=== PATIENT | male | born 1965 | race African-American/Black ===

== ENCOUNTER 2021-10-03 08:38 | Emergency (ER) | payer OTHER, SELFPAY ==
[2021-10-03 08:48] VITALS: BP 142/84; PULSE 72; RESP 16; TEMP 36.2; O2SAT 99
--- NOTE | 2021-10-03 08:57 | ED.EYEPROB ---
HPI - Eye Problem General Chief complaint: Eye Problems Stated complaint: left eye redness Time Seen by Provider: 10/03/21 08:40 Source: patient Mode of arrival: ambulatory Limitations: no limitations History of Present Illness HPI Narrative: 55 year old male presents to [facility] with complaints of let eye redness, drainage and matting since yesterday, Patient does wear glasses. Patient denies injury to his eye. Patient reports that his eye was matted shut this AM. Patient reports that he has had mild cold symptoms over the past week but denies fever. MD chief complaint: eye redness and other (drainage, matting) Onset (ago): day(s) (1) Location: left eye Mechanism: none Associated symptoms: none Treatments Prior to Arrival: none Related Data Home Medications Medication Instructions Recorded Confirmed bisoprolol fumarate 5 mg tablet 5 mg PO DAILY 10/03/21 10/03/21 evolocumab 140 mg/mL subcutaneous 140 mg subcut [id number] 10/03/21 10/03/21 pen injector (Fuad Youssef) meloxicam 15 mg tablet 15 mg PO DAILY 10/03/21 10/03/21 tamsulosin 0.4 mg capsule 0.4 mg PO DAILY 10/03/21 10/03/21 Allergies Allergy/AdvReac Type Severity Reaction Status Date / Time aspirin AdvReac Intermediate Vomiting Verified 10/03/21 09:06 Review of Systems Constitutional: Constitutional: Denies chills, Denies fatigue, Denies fever(s) and Denies weakness Eyes: Comments: left eye redness, irritation, drainage and matting ENT: Denies vertigo, Denies dizziness and Denies nasal congestion Cardiovascular: Cardiovascular: Denies chest pain, Denies rapid heart rate and Denies radiating jaw, neck or arm pain Gastrointestinal: Gastrointestinal: Denies abdominal pain, Denies nausea and Denies vomiting Integumentary/Breasts: Skin/Breast: Denies rash Exam Const: General: healthy appearing Nutritional Appearance: well nourished Orientation/consciousness: patient oriented x3 Limitations: no limitations HENMT: Head: normal to inspection Ears: external ears normal Face and sinus: normal facial exam Mouth: Yes Normal oral and palatal mucosa present Throat: uvula midline Eyes: Conjunctivae: conjunctival abnormality left (redness noted to left eye with scant amount of purlulent drainage from left eye noted. ) conjunctival injection Pupils: Equal, round and reactive pupils present Neck: Neck: normal visual inspection Resp: Effort & Inspection: normal respiratory effort Cardio: Rate: regular rate Rhythm: regular rhythm Heart sounds: no murmurs Skin: General skin exam: normal color Rashes: no rashes Wounds: no wounds Neuro: General: patient oriented x3 and moves all extremities Speech: normal speech Gait exam (Neuro): Normal gait present Psych: Mental Status: mental status grossly normal Affect: normal affect Attitude: cooperative Course Course Level of Care: Express Care Visit Vital Signs Vital signs: Vital Signs Temperature 36.2 C L 10/03/21 08:48 Pulse Rate 72 10/03/21 08:48 Respiratory Rate 16 10/03/21 08:48 Blood Pressure 142/84 H 10/03/21 08:48 Pulse Oximetry 99 10/03/21 08:48 Oxygen Delivery Room Air 10/03/21 08:48 Temperature 36.2 C L 10/03/21 08:48 Pulse Rate 72 10/03/21 08:48 Respiratory Rate 16 10/03/21 08:48 Blood Pressure 142/84 H 10/03/21 08:48 Pulse Oximetry 99 10/03/21 08:48 Oxygen Delivery Room Air 10/03/21 08:48 MDM - Eye Problem MDM Narrative Medical decision making narrative: Patient instructed to use eye drops as prescribed. Instructed patient to wash hands after touching eye. Patient agrees to follow up with eye dr if symptoms do not improve. Also informed patient to proceed to ER if symptoms worsen Differential Diagnosis Differential diagnosis: Likely subconjunctival hemorrhage and other (viral illness) Critical Care Time Critical Care Time Critical Care Time: No Discharge Plan Discharge Clinical Impression: Bacterial conjunctivitis Patient Di
== END 2021-10-03 09:31 | disposition home or self-care (01) ==
PROVIDERS: Emergency Provider Nurse Practitioner Family
DX: H10.9 Unspecified conjunctivitis (principal)
CPT/HCPCS: 99203; G0463

== ENCOUNTER → 2023-03-09 09:23 | Outpatient (CLI) | payer OTHER, SELFPAY ==
--- NOTE | ~2023-03-09 | XR_ITS ---
XR_[id number] DATE: 03/09/2023 10:16 INDICATION: Neck pain TECHNIQUE: AP, lateral, open-mouth, odontoid and swimmer views COMPARISON: None FINDINGS: Cervical curvature is intact. C1 and C2 are normally aligned and the odontoid process is in tact. There is moderately severe degenerative disc disease and anterior and posterior spurring at C6-7. The remaining cervical spaces are well preserved. No fracture or dislocation or locked facet or prevertebral soft tissue swelling. IMPRESSION: Moderately severe degenerative disc disease at C6-7 Reviewed, dictated and finalized at [facility]. Reviewed, dictated and finalized at [facility]. [facility]
== END ==
PROVIDERS: PCP Chiropractor; Visit Provider Family Medicine
DX: M50.323 Other cervical disc degeneration at C6-C7 level (principal)
CPT/HCPCS: 72040

== ENCOUNTER 2023-03-31 11:35 | Outpatient (CLI) | payer OTHER, SELFPAY ==
[2023-03-31 12:38] LABS: Influenza A QL RT-PCR Positive (Negative); Influenza B QL RT-PCR Negative (Negative); RSV RNA, RT-PCR Negative (Negative); SARS-CoV-2 RNA PCR Negative (Negative)
== END 2023-03-31 11:36 | disposition home or self-care (01) ==
LOC: ANHLAB 11:36
PROVIDERS: PCP Chiropractor; Visit Provider Physician Assistant
DX: R50.9 Fever, unspecified (principal); Z20.822 Contact with and (suspected) exposure to COVID-19
CPT/HCPCS: 87637

== ENCOUNTER 2023-03-31 11:56 | Emergency (ER) | payer OTHER, SELFPAY ==
--- NOTE | ~2023-03-31 | XR_ITS ---
Clinical Indication: Fever PA and lateral views of the chest: Comparison: None Findings: The lungs are clear, without evidence of focal consolidation or pleural effusion. Cardiome diastinal silhouette is within normal limits. Bones and soft tissues are unremarkable. Impression: Normal chest. Reviewed, dictated and finalized at [facility]. CURER Impression: Normal chest.
[2023-03-31 12:25] VITALS: BP 160/92; PULSE 89; RESP 16; TEMP 36.8; O2SAT 99
[2023-03-31 13:00] LABS: Influenza A QL RT-PCR Positive (Negative); Influenza B QL RT-PCR Negative (Negative); RSV RNA, RT-PCR Negative (Negative); SARS-CoV-2 RNA PCR Negative (Negative)
--- NOTE | 2023-03-31 13:59 | ED.URI ---
HPI - URI/Sore Throat General Chief Complaint: Upper Respiratory Infection Stated Complaint: cough, congestion, fever Time Seen by Provider: 03/31/23 13:58 Source: patient Mode of arrival: ambulatory Limitations: no limitations History of Present Illness HPI Narrative: Watson is a 57-year-old male patient presenting to the ER today with complaints of cough, congestion, and fever. Reports that his symptoms started Monday night. Does report some chest discomfort with coughing. Cough is nonproductive. MD elicited complaint: fever, cough, nasal congestion and other Related Data Allergies Allergy/AdvReac Type Severity Reaction Status Date / Time aspirin AdvReac Intermediate Vomiting Verified 02/28/23 13:49 Review of Systems Review of Systems: Pertinent positives per HPI. Patient denies any rash, headache, visual changes, dizziness, shortness of breath, chest pain, palpitations, nausea, vomiting, diarrhea, constipation, abdominal pain, or any urinary issues. PMFSH Past Medical History Medical History (Updated 03/31/23 @ 14:04 by James Johnson APRN) BPH (benign prostatic hyperplasia) Chronic neck pain Elevated PSA Erectile dysfunction HLD (hyperlipidemia) HTN (hypertension) Osteoarthritis Surgical History Surgical History History of umbilical hernia repair Family History Family History Mother Hypertension Social History Social History Smoking status: Never smoker Alcohol intake: never Substance use: never Living arrangements: with family Occupation/Education: occupation Gender identity (if verbalized by the patient): Male Sexual Orientation (if Verbalized by the Patient): Straight or Heterosexual Spiritual care concerns: No Comments At the time of my signature, I reviewed and agree with the nursing past medical, surgical, social, and family history. There is no relevant family history pertinent to the patient complaint. Exam Narrative: General: Well-developed, well nourished, in no apparent distress Head: Normocephalic, atraumatic Eyes: Pupils equally round and reactive to light bilaterally, EOM intact, sclera and conjunctive clear, no discharge, lids normal Ears: TMs intact and clear, ear canals ceruminous, no drainage, grossly hearing normal. Nose: Nares patent, clear nasal discharge, no inflammation, no sinus tenderness. Mouth: Oral pharynx without lesions or masses, good dentition, MMM. Neck: Supple, trachea midline, no enlargement of anterior or posterior cervical nodes, no thyroid masses or goiter palpable. Cardio: Regular rate and rhythm, s1 and s2 normal, no murmur appreciated. Resp: Clear to auscultation bilaterally, no rhonchi, rales, wheezing or rubs Course Course Emergency Course: Portions of this record may have been created with voice recognition software. Vital Signs Vital signs: Vital Signs Temperature 36.8 C 03/31/23 12:25 Pulse Rate 89 03/31/23 12:25 Respiratory Rate 16 03/31/23 12:25 Blood Pressure 160/92 H 03/31/23 12:25 Pulse Oximetry 99 03/31/23 12:25 Temperature 36.8 C 03/31/23 12:25 Pulse Rate 89 03/31/23 12:25 Respiratory Rate 16 03/31/23 12:25 Blood Pressure 160/92 H 03/31/23 12:25 Pulse Oximetry 99 03/31/23 12:25 Vital signs reviewed MDM - URI/Sore Throat MDM Narrative Medical decision making narrative: At the time of visit patient is resting comfortably on the exam table. Patient appears to be nontoxic. Labs: Influenza a testing was positive. COVID and RSV testing was negative. Diagnostics: Chest x-ray is negative for any sign pneumonia. Plan: I suspect patient has influenza A. Prescription for Tamiflu was sent to the pharmacy. Work note was given. Supportive measures were discussed with the patient and they
== END 2023-03-31 14:20 | disposition home or self-care (01) ==
LOC: ANHED 14:08
PROVIDERS: Emergency Medicine; Emergency Provider Nurse Practitioner Family; PCP Family Medicine
DX: J10.1 Influenza due to other identified influenza virus with other respiratory manifestations (principal); Z20.822 Contact with and (suspected) exposure to COVID-19; I10 Essential (primary) hypertension; E78.5 Hyperlipidemia, unspecified; N40.0 Benign prostatic hyperplasia without lower urinary tract symptoms; M19.90 Unspecified osteoarthritis, unspecified site
CPT/HCPCS: 71046; 87637; 99283

== ENCOUNTER 2024-02-28 10:01 | Emergency (ER) | payer OTHER, SELFPAY ==
[2024-02-28 10:19] VITALS: BP 133/83; PULSE 76; RESP 15; TEMP 36.7; O2SAT 99
--- NOTE | 2024-02-28 10:20 | ED_ITS ---
HPI - URI/Sore Throat General Chief Complaint: Upper Respiratory Infection Stated Complaint: Bodyaches/Chills/Fatigue Time Seen by Provider: 02/28/24 10:20 Source: patient, RN notes reviewed and old records reviewed Mode of arrival: ambulatory Limitations: no limitations History of Present Illness HPI Narrative: Patient presents with complaints of URI symptoms that began at about 7:00 p.m. last night. He reports runny nose, cough, body aches, headache, subjective fever. He has not been taking anything for his symptoms. He is requesting a work note Related Data Home Medications ?Medication ?Instructions ?Recorded ?Confirmed ?Last Taken ?Type evolocumab 140 mg/mL subcutaneous mg subcut 02/28/24 Unknown History syringe (Repatha Syringe) Allergies Allergy/AdvReac Type Severity Reaction Status Date / Time aspirin AdvReac Intermediate Vomiting Verified 02/28/24 10:20 Review of Systems Review of Systems: All systems reviewed & are unremarkable except as noted in HPI and below Constitutional: Constitutional: Reports as per HPI, Reports no additional constitutional complaints, Reports body ache(s), Reports chills, Reports fever(s) and Reports headache(s) ENT: Reports system reviewed and no additional complaints, except as documented, Reports headache(s), Reports nasal congestion and Reports nasal discharge Cardiovascular: Cardiovascular: Reports no additional cardiovascular complaints Respiratory: Respiratory: Reports no additional respiratory complaints and Reports cough Gastrointestinal: Gastrointestinal: Reports no additional gastrointestinal complaints [facility] Past Medical History Medical History BPH (benign prostatic hyperplasia) Chronic neck pain Elevated PSA Erectile dysfunction HLD (hyperlipidemia) HTN (hypertension) Osteoarthritis Surgical History Surgical History History of umbilical hernia repair Family History Family History Mother Hypertension Social History Social History Smoking status: Never smoker Alcohol intake: never Substance use: never Living arrangements: with family Occupation/Education: occupation Gender identity (if verbalized by the patient): Male Sexual Orientation (if Verbalized by the Patient): Straight or Heterosexual Spiritual care concerns: No Comments At the time of my signature, I reviewed and agree with the nursing past medical, surgical, social, and family history. There is no relevant family history pertinent to the patient complaint. Exam Const: General: cooperative, no acute distress, alert and awake Orientation/consciousness: oriented to person, oriented to place and oriented to time HENMT: Head: normal to inspection Ears: TM's normal bilaterally Resp: Effort & Inspection: normal respiratory effort and able to speak in complete sentences Auscultation: clear to auscultation bilaterally, no crackles, no rales, no rhonchi and no wheezes Cardio: Palpation: normal PMI Rate: regular rate Rhythm: regular rhythm Heart sounds: S1 normal heart sound present and S2 normal heart sound present Neuro: General: oriented to person, oriented to place and oriented to time Cranial nerves: Yes CN's II-XII intact bilaterally Psych: Appearance: grossly normal Thought process: Normal thought process present Insight: Good insight present (Psych) Judgement: Good judgement present (Psych) Course Course Level of Care: Express Care Visit Vital Signs Vital signs: Reviewed MDM - URI/Sore Throat MDM Narrative Medical decision making narrative: Negative flu, negative COVID, reassuring physical exam. Patient advised to treat symptoms. Discharge instructions reviewed with patient, as well as provided in writing per nursing staff. The instructions also include specific and strict return/GO TO THE ER as well as f/u information. All questions have been answered, and the patient deny any further questions with discharge and discharge plan. Some parts of this dictation were generated by voice recognition software and may contain typographical and/or grammatical inaccuracies. Differential Diagnosis Differential diagnosis: Likely upper respiratory infection, otitis media, viral infection, influenza and pharyngitis Medical Records Attestation: I reviewed the patient's medical records. Lab Data Attestation: I reviewed the patient's lab results. Discharge Plan Discharge Clinical Impression: Upper respiratory infection Qualifiers: URI type: unspecified viral URI Qualified Code(s): J06.9 - Acute upper respiratory infection, unspecified Patient Disposition: Home, Self-Care Condition: Stable Instructions: Antibiotic Form, Cold Symptoms (ED) Additional Instructions: Use [id number] medications to treat your symptoms. Please follow package instructions. Follow-up with primary care provider. Emergency department for new or worse symptoms Patient Language: [place] Prescriptions: No Action tramadol 50 mg tablet 50 mg PO Q6H PRN (Reason: pain) Qty: 7 0RF amlodipine 10 mg tablet 10 mg PO DAILY Qty: 30 5RF tamsulosin 0.4 mg capsule 0.4 mg PO DAILY Qty: 90 2RF tadalafil 20 mg tablet 20 mg PO DAILY PRN (Reason: sexual activity) Qty: 6 5RF Rx Instructions: administer approximately 30min before sexual activity; do not use more than 1 dose per 24hrs Repatha SureClick 140 mg/mL pen injector 140 mg subcut Q14D Qty: 2 5RF bisoprolol-hydrochlorothiazide 10-6.25 mg tablet 1 tablet PO DAILY Qty: 90 2RF meloxicam 15 mg tablet 15 mg PO DAILY Qty: 30 5RF Follow-up/Referrals: PHYSICIAN,[facility] RECEPTIONIST [Primary Care Provider] - Stand Alone Forms: Work/School Release IP Time of Disposition: 10:50
[2024-02-28 10:36] LABS: EDCOVIDSCREEN Negative (Negative); EDINFLUASCREEN Negative (Negative); EDINFLUBSCREEN Negative (Negative)
== END 2024-02-28 10:55 | disposition home or self-care (01) ==
PROVIDERS: Emergency Provider Nurse Practitioner Family
DX: J06.9 Acute upper respiratory infection, unspecified (principal); Z20.822 Contact with and (suspected) exposure to COVID-19; N40.0 Benign prostatic hyperplasia without lower urinary tract symptoms; I10 Essential (primary) hypertension; E78.5 Hyperlipidemia, unspecified; M19.90 Unspecified osteoarthritis, unspecified site
CPT/HCPCS: 87426; 87804; 99212; G0463

== ENCOUNTER 2024-03-26 09:24 | Emergency (ER) | payer OTHER, SELFPAY ==
[2024-03-26 09:29] VITALS: BP 152/86; PULSE 68; RESP 16; TEMP 37.2; O2SAT 99
--- NOTE | 2024-03-26 10:16 | ED_ITS ---
HPI - Skin/Abscess/Foreign Bdy General Chief complaint: Skin/Abscess/Foreign Body Stated complaint: Nose Pain Time Seen by Provider: 03/26/24 10:16 Source: patient, RN notes reviewed and old records reviewed Mode of arrival: ambulatory Limitations: no limitations History of Present Illness HPI narrative: Patient presents with complaints of sore to the right nostril. He reports that this has been present for at least 1 month. States that the lesion will crust over, that begins bleeding. He denies any initial injury or trauma, does admit that he has been picking at the sore. He voices no other complaints at this time Related Data Home Medications ?Medication ?Instructions ?Recorded ?Confirmed ?Last Taken ?Type evolocumab 140 mg/mL subcutaneous mg subcut 02/28/24 Unknown History syringe (Repatha Syringe) Allergies Allergy/AdvReac Type Severity Reaction Status Date / Time aspirin AdvReac Intermediate Vomiting Verified 03/26/24 09:54 Review of Systems 2 Review of Systems: All systems reviewed & are unremarkable except as noted in HPI and below Constitutional: Constitutional: Reports no additional constitutional complaints ENT: Reports system reviewed and no additional complaints, except as documented Cardiovascular: Cardiovascular: Reports no additional cardiovascular complaints Respiratory: Respiratory: Reports no additional respiratory complaints Gastrointestinal: Gastrointestinal: Reports no additional gastrointestinal complaints Integumentary/Breasts: Skin/Breast: Reports sores (Inside of right nostril) [facility] Past Medical History Medical History Elevated PSA Chronic neck pain Osteoarthritis Erectile dysfunction BPH (benign prostatic hyperplasia) HLD (hyperlipidemia) HTN (hypertension) Surgical History Surgical History History of umbilical hernia repair Family History Family History Mother Hypertension Social History Social History Smoking status: Never smoker Alcohol intake: never Substance use: never Living arrangements: with family Occupation/Education: occupation Gender identity (if verbalized by the patient): Male Sexual Orientation (if Verbalized by the Patient): Straight or Heterosexual Spiritual care concerns: No Comments At the time of my signature, I reviewed and agree with the nursing past medical, surgical, social, and family history. There is no relevant family history pertinent to the patient complaint. Exam 2 Const: General: cooperative, no acute distress, alert and awake O rientation/consciousness: oriented to person, oriented to place and oriented to time HENMT: Head: normal to inspection Face images: 1. Honey-crusted lesion Resp: Effort & Inspection: normal respiratory effort and able to speak in complete sentences Auscultation: clear to auscultation bilaterally, no crackles, no rales, no rhonchi and no wheezes Cardio: Palpation: normal PMI Rate: regular rate Rhythm: regular rhythm Heart sounds: S1 normal heart sound present and S2 normal heart sound present Neuro: General: oriented to person, oriented to place and oriented to time Cranial nerves: Yes CN's II-XII intact bilaterally Psych: Appearance: grossly normal Thought process: Normal thought process present Insight: Good insight present (Psych) Judgement: Good judgement present (Psych) Course Course Level of Care: Express Care Visit Vital Signs Vital signs: Vital Signs Temperature 98.9 F 03/26/24 09:29 Pulse Rate 68 03/26/24 09:29 Respiratory Rate 16 03/26/24 09:29 Blood Pressure 152/86 H 03/26/24 09:29 Pulse Oximetry 99 03/26/24 09:29 Oxygen Delivery Room Air 03/26/24 09:29 Temperature 98.9 F 03/26/24 09:29 Pulse Rate 68 03/26/24 09:29 Respiratory Rate 16 03/26/24 09:29 Blood Pressure 152/86 H 03/26/24 09:29 Pulse Oximetry 99 03/26/24 09:29 Oxygen Delivery Room Air 03/26/24 09:29 Reviewed MDM - Skin/Abscess/Foreign Bdy MDM Narrative Medical decision making narrative: History and exam consistent with impetigo. Patient nontoxic appearing, stable for discharge home. Discharge instructions reviewed with patient, as well as provided in writing per nursing staff. The instructions also include specific and strict return/GO TO THE ER as well as f/u information. All questions have been answered, and the patient deny any further questions with discharge and discharge plan. Some parts of this dictation were generated by voice recognition software and may contain typographical and/or grammatical inaccuracies. Differential Diagnosis Differential diagnosis: Likely abscess of skin or subcutaneous tissue and cellulitis Medical Records Attestation: I reviewed the patient's medical records. Discharge Plan Discharge Clinical Impression: Impetigo Patient Disposition: Home, Self-Care Condition: Stable Instructions: Antibiotic Form, Impetigo (ED) Additional Instructions: Use medications as prescribed. Follow-up with primary care provider. Emergency department for new or worse symptoms. Patient Language: Yi Prescriptions: New mupirocin [Centany] 2 % ointment 1 applic topical BID 14 Days Qty: 22 0RF No Action Repatha Syringe 140 mg/mL syringe SUBCUT tramadol 50 mg tablet 50 mg PO Q6H PRN (Reason: pain) Qty: 7 0RF amlodipine 10 mg tablet 10 mg PO DAILY Qty: 30 5RF tamsulosin 0.4 mg capsule 0.4 mg PO DAILY Qty: 90 2RF tadalafil 20 mg tablet 20 mg PO DAILY PRN (Reason: sexual activity) Qty: 6 5RF Rx Instructions: administer approximately 30min before sexual activity; do not use more than 1 dose per 24hrs Repatha SureClick 140 mg/mL pen injector 140 mg subcut Q14D Qty: 2 5RF bisoprolol-hydrochlorothiazide 10-6.25 mg tablet 1 tablet PO DAILY Qty: 90 2RF meloxicam 15 mg tablet 15 mg PO DAILY Qty: 30 5RF Follow-up/Referrals: PHYSICIAN,FLOAT NURSE [Primary Care Provider] - Stand Alone Forms: Work/School Release IP Time of Disposition: 10:32
== END 2024-03-26 10:35 | disposition home or self-care (01) ==
PROVIDERS: Emergency Provider Nurse Practitioner Family
DX: L01.00 Impetigo, unspecified (principal); I10 Essential (primary) hypertension; E78.5 Hyperlipidemia, unspecified; N40.0 Benign prostatic hyperplasia without lower urinary tract symptoms; M19.90 Unspecified osteoarthritis, unspecified site
CPT/HCPCS: 99213; G0463